=== PATIENT | male | born 1945 | race Caucasian/White ===

== ENCOUNTER → 2024-02-14 12:02 | Outpatient (REF) | payer MEDICARE, SELFPAY | LOC: HWRAD 12:02 | PROVIDERS: ATTENDING PHYSICIAN Family Medicine | DX: I72.3 Aneurysm of iliac artery (principal); R22.1 Localized swelling, mass and lump, neck; R93.5 Abnormal findings on diagnostic imaging of other abdominal regions, including retroperitoneum | CPT/HCPCS: 70491; 74174; Q9967 ==

== ENCOUNTER → 2024-02-19 09:18 | Outpatient (REF) | payer MEDICARE, SELFPAY | LOC: HWRAD 09:18 | PROVIDERS: ATTENDING PHYSICIAN Family Medicine | DX: Z87.891 Personal history of nicotine dependence (principal) | CPT/HCPCS: 71271 ==

== ENCOUNTER 2024-08-16 11:12 | Emergency (ER) | payer MEDICARE, SELFPAY ==
[2024-08-16 11:19] VITALS: BP 213/116
[2024-08-16 11:20] VITALS: BP 188/98
[2024-08-16 11:39] LABS: Urine Albumin Negative (Neg - Trace); Urine Bilirubin Negative (Negative); Urine Character Clear (Clear); Urine Color Yellow; Urine Glucose Negative (Negative); Urine Ketone Negative (Negative); Urine Leukocyte 1+ (Negative); Urine Nitrite Negative (Negative); Urine Occult Blood Negative (Negative); Urine Specific Gravity 1.025 (<1.030); Urine Urobilinogen Negative (Neg - 1+)
[2024-08-16 11:55] LABS: Urine Bacteria Few (Negative); Urine Red Blood Cell 0-2 /HPF (0-2); Urine Squamous Cell 0-2 /LPF (Few)
--- NOTE | 2024-08-16 12:13 | ED.GENMED ---
History of Present Illness
General
Chief Complaint: Flank Pain
Source: patient
Exam Limitations: none
Time Seen by Provider: 08/16/24 12:07
History of Present Illness
History of Present Illness:
See MDM
Past History
Past History
ED Past Medical History: None
ED Past Surgical History: None
Social History
Tobacco: Non-smoker
Alcohol: None
Phy Exam
Physical Exam
Physical Exam:
See MDM
Course
Orders/Labs/Results
Orders:
Orders
08/16/24 11:30
Urinalysis Reflex To Culture Urgent
Date Specimen was Collected: 08/16/24
Time Specimen was Collected: 11:25
Urine Microscopic Reflex Cult Urgent
Urine Culture Urgent
AYAKA Source: U
Specimen Description:
Date Specimen was Collected: 08/16/24
Time Specimen was Collected: 11:25
08/16/24 12:11
CT Abd/pelvis W Iv Cont Urgent
Comment:
Reason For Exam: Left flank pain and general abd pain
08/16/24 12:16
Complete Blood Count/With Diff Urgent
Comprehensive Metabolic Panel Urgent
08/16/24 12:28
Add On- LAB Urgent
Tests Added?: Lipase
Abnormal Lab Results
08/16/24 08/16/24
11:30 12:16
WBC 11.7 H 10^3/uL
(4.8-10.8)
MCH 31.4 H pg
(27.0-31.0)
Abs Immat Gran (auto) 0.1 H 10^3/uL
(0-0.05)
Absolute Neuts (auto) 10.0 H 10^3/uL
(1.4-6.5)
Neutrophils % 85.9 H %
(42.2-75.2)
Lymphocytes % 9.9 L %
(20.5-51.1)
Sodium 134 L mmol/L
(135-145)
Glucose 137 H mg/dl
(70-99)
Leukocyte Esterase Rfl 1+ A
(Negative)
Urine Bacteria (Reflex) Few A
(Negative)
08/16/24 12:16
08/16/24 12:16
Vital Signs
Initial and Last Documented VS:
Initial Vital Signs
Temp Pulse Resp Pulse Ox
98 F 91 16 96
08/16/24 11:15 08/16/24 11:15 08/16/24 11:15 08/16/24 11:15
Last Documented Vital Signs
Temp Pulse Resp BP Pulse Ox
98 F 91 16 188/98 96
08/16/24 11:15 08/16/24 11:15 08/16/24 11:15 08/16/24 11:20 08/16/24 12:45
MDM/Problems Addressed
Differential Diagnosis Includes:
HPI and MDM Narrative:
78-year-old male presenting for evaluation of left flank pain. He noticed it last night. It came on randomly. Assuming it could be a kidney stone, he started drinking a lot of water. Patient is now worried his belly feels distended. On my exam,
he has no CVA tenderness. His abdomen does feel somewhat distended but is soft. Given his history, will obtain CT
Physical exam
General: Well appearing and non-toxic
HEENT: protecting airway
Neck: appears supple
CV: No evidence of cyanosis
Resp: No accessory muscle use
Abd: Mildly distended. No significant tenderness. Left inguinal hernia noted
Extremities: No deformities
Neuro: alert
Psych: Normal affect
Skin: Intact
Problems Addressed including Acute and Chronic Conditions affecting care:
1. Abdominal pain and left flank pain
Acuity: acute
Prognosis: stable
Details: Will obtain CT
Updates
CT negative. Discussed expected management of pain and return precautions. Patient believes it could be related to his recent exercise.
Differential Diagnosis (but not limited to): Kidney stone, small bowel obstruction, colitis
Testing considered: Renal ultrasound
Drug therapy (if applicable): OTC meds, please see d/c instruction regarding Rx drugs
Amount and/or Complexity of Data Reviewed
Clinical info obtained from: Patient
External data reviewed: N/A
Labs I independently reviewed (but not limited to): Mild leukocytosis
Radiology: The CT scan was personally and independently reviewed. In addition, official CT report reviewed.
Pulse Ox: not hypoxic
EKG independently reviewed: N/A
Animal Researcher: N/A
Critical Care: N/A
Risk of Complication:
Social Determinants of health: Good social support
Discussed with other providers: N/A
Escalation of Care includes Admit/Obs: After being observed in the Emergency Department, pt stable for discharge.
Occasional wrong word or 'sound a like' substitutions may have occurred due to the inherent limitations of voice recognition software. Read the chart carefully and recognize, using context, where substitutions have occurred.
*Critical Care Note
Total Time (30-74mins, 75-104mins- exclusive of procedures): Not Applicable
ED Attending Note
-
Portions of this chart may have been created with voice recognition software.� Occasional wrong word or��sound alike� substitutions may have occurred due to the inherent limitations of voice recognition software.
Discharge Plan
Departure
Patient Disposition: Home (Routine Discharge)
Date of Disposition: 08/16/24
Time of Disposition: 14:23
Patient with high blood pressure during this ER visit?: Yes
Discharge Problem:
Abdominal pain
Instructions: Abdominal Pain
Prescriptions:
No Action
No Current Medications
0
Referrals:
Fran Betts MD [Family Provider] -
Activity Restrictions/Additional Instructions:
Please return for any worsening symptoms.
You may return at any time if you have further concerns.
Please follow up with your doctor at the first available appointment, preferably this week.
Thank you for choosing [facility].
Interventions
Interventions:
*Risk Screen - Suicide Last Done: 08/16/24 11:15
*General Assessment Last Done: 08/16/24 12:14
*Neglect/Abuse Screening Last Done: 08/16/24 11:15
*ED- Fall Risk Assessment Last Done: 08/16/24 12:14
*ED COVID-19 Vaccine History Last Done: 08/16/24 12:14
AS-Veydqj-Natxlyfsou Assessment Last Done: 08/16/24 12:14
ED-Male Genitourinary Assessment Last Done: 08/16/24 12:14
Discharge Date and Time
Print Language: ZAMBIAN
[2024-08-16 12:36] LABS: % Basophils 0.3 % (0-2); % Immature Granulocytes 0.4 % (0-0.5); % Lymphocytes 9.9 % (20.5-51.1); % Monocytes 3.5 % (1.7-9.3); % Neutrophils 85.9 % (42.2-75.2); Absolute Immature Granulocytes 0.1 10^3/uL (0-0.05); Absolute Lymphocytes 1.2 10^3/uL (1.2-3.4); Absolute Monocytes 0.4 10^3/uL (0.1-0.6); Hematocrit 43.3 % (39.0-52.0); Hemoglobin 15.1 g/dL (13.0-18.0); Mean Corp Hgb Conc. 34.9 g/dL (33.0-37.0); Mean Corpuscular Hgb 31.4 pg (27.0-31.0); Mean Platelet Volume 10.1 fL (7.4-10.4); Nucleated Red Blood Cells % 0 % (-); Platelet Count 211 10^3/uL (130-400); Red Blood Cell Count 4.81 10^6/uL (4.70-6.10); White Blood Cell Count 11.7 10^3/uL (4.8-10.8)
[2024-08-16 12:47] LABS: ALT (SGPT) 18 U/L (0-50); AST (SGOT) 21 U/L (17-59); Albumin 4.5 g/dl (3.5-5.0); Alkaline Phosphatase 67 U/L (38-126); Blood Urea Nitrogen 13 mg/dl (9-20); Calcium 9.4 mg/dl (8.4-10.2); Carbon Dioxide 22 mmol/L (22-30); Chloride 105 mmol/L (98-107); Glucose 137 mg/dl (70-99); Potassium 4.1 mmol/L (3.5-5.1); Sodium 134 mmol/L (135-145); Total Bilirubin 0.6 mg/dl (0.2-1.3); Total Protein 7.6 g/dl (6.3-8.2); eGFR > 60.00
== END 2024-08-16 14:49 | disposition home or self-care (01) ==
LOC: EMR 11:12
PROVIDERS: EMERGENCY PHYSICIAN Student in an Organized Health Care Education/Training Program; FAMILY PHYSICIAN Student in an Organized Health Care Education/Training Program
DX: R10.9 Unspecified abdominal pain (principal); R14.0 Abdominal distension (gaseous); R03.0 Elevated blood-pressure reading, without diagnosis of hypertension; K40.90 Unilateral inguinal hernia, without obstruction or gangrene, not specified as recurrent
CPT/HCPCS: 99284; 74177; 80053; 81003; 81015; 85025; 87086; Q9967

== ENCOUNTER → 2024-09-16 10:27 | Outpatient (REF) | payer MEDICARE, SELFPAY | LOC: RAD 10:27 | PROVIDERS: ATTENDING PHYSICIAN Surgery Vascular Surgery; FAMILY PHYSICIAN Student in an Organized Health Care Education/Training Program | DX: I77.9 Disorder of arteries and arterioles, unspecified (principal); I74.5 Embolism and thrombosis of iliac artery; I72.3 Aneurysm of iliac artery; I65.22 Occlusion and stenosis of left carotid artery | CPT/HCPCS: 93880; 93922; 93978 ==

== ENCOUNTER → 2025-03-06 10:18 | Outpatient (REF) | payer MEDICARE, SELFPAY | LOC: HWRAD 10:18 | PROVIDERS: ATTENDING PHYSICIAN Student in an Organized Health Care Education/Training Program | DX: R91.1 Solitary pulmonary nodule (principal) | CPT/HCPCS: 71250 ==

== ENCOUNTER → 2025-03-27 09:10 | Outpatient (REF) | payer MEDICARE, SELFPAY | LOC: RAD 09:10 | PROVIDERS: ATTENDING PHYSICIAN Surgery Vascular Surgery; FAMILY PHYSICIAN Student in an Organized Health Care Education/Training Program | DX: I65.23 Occlusion and stenosis of bilateral carotid arteries (principal); I77.9 Disorder of arteries and arterioles, unspecified | CPT/HCPCS: 76770; 93880; 93922 ==